=== PATIENT | male | born 1990 | race Caucasian/White ===

== ENCOUNTER 2018-06-04 15:29 | Emergency (ER) | payer OTHER ==
[2018-06-04 15:43] VITALS: BP 130/81; PULSE 73; RESP 18; TEMP 97.8
[2018-06-04] MEDS ORDERED: LIDOCAINE 1% INJ 10MG/ML (20 ML MDV) SQ ONE (15:50)
[2018-06-04] MEDS ORDERED: DIPH,PERTUS(ACELL)TETVAC-LF 0.5 ML VIAL IM ONE (16:00)
[2018-06-04] MEDS ORDERED: TOPICAL SKIN ADHESIVE 1 EACH AMP TOPICAL ONE (16:00)
== END 2018-06-04 16:23 | disposition left against medical advice (07) ==
LOC: EC 15:29
DX: Z03.89 Encounter for observation for other suspected diseases and conditions ruled out (principal)
CPT/HCPCS: 99499

== ENCOUNTER 2018-06-30 22:37 | Emergency (ER) | payer OTHER ==
[2018-06-30] MEDS ORDERED: SODIUM CHLORIDE 0.9% 1,000 ML IV STA (22:40)
[2018-06-30] MEDS ORDERED: ACTIVATED CHARCOAL 50 GM/240 ML BOTTLE PO STA (22:41)
--- NOTE | 2018-06-30 22:57 | ED ---
General Adult HPI - General Chief complaint: Overdose Stated complaint: overdose Time Seen by Provider: 06/30/18 22:39 Source: patient, EMS Mode of arrival: EMS Limitations: no limitations - History of Present Illness Initial comments: Dictation was produced using [employer] dictation software. please excuse any grammatical, word or spelling errors. Chief Complaint: 27-year-old male presents with EtOH intoxication and acute o verdose History of Present Illness: She is a 27-year-old male he is a daily EtOH drinker. He presents today for acute overdose. Patient took 40-50 Librium 25 mg tablets approximately 20 minutes prior to arrival. Patient states he is not suicidal or homicidal. Patient is brought in by EMS where he had stable vital signs upon initial evaluation. Patient is a poor history and at this time. He has no complaints. Patient states he wants help with his EtOH addiction. The ROS documented in this emergency department record has been reviewed and confirmed by me. Those systems with pertinent positive or negative responses have been documented in the HPI. All other systems are other negative and/or noncontributory. PHYSICAL EXAM: General Impression: Alert and oriented x3, not in acute distress, lethargic HEENT: Normocephalic atraumatic, extra-ocular movements intact, pupils equal and reactive to light bilaterally, mucous membranes moist. Cardiovascular: Heart regular rate and rhythm, S1&S2 audible, no murmurs, rubs or gallops Chest: Lungs clear to auscultation bilaterally, no rhonchi, no wheeze, no rales Abdomen: Bowel sounds present, abdomen soft, non-tender, non-distended, no organomegaly Musculoskeletal: Pulses present and equal in all extremities, no peripheral edema Motor: no focal deficits noted Neurological: CN II-XII grossly intact, no focal motor or sensory deficits noted Skin: Intact with no visualized rashes Psych: Normal affect and mood ED course: 27-year-old male presents with acute Librium and EtOH toxicity. Vital signs upon arrival are within acceptable limits. Patient is protecting his airway. Given the patient's time of ingestion was 20 minutes prior to arrival activated charcoal ordered. Patient worked up for acute overdose. Patient's clinical presentation consistent with benzodiazepine toxidrome.Patient appears well at this time. He is a at baseline. Patient however still slightly inebriated patient walked to the bathroom without any complications. Labs were obtained unremarkable. Urinalysis negative. Serum alcohol is 274. Patient has his significant other at bedside who lives with them. She feels comfortable taking him home and bring him back if there is any issues. Understandable and agreeable to the risks of leaving. However at this point he has good social situation and lives nearby and can come back to the emergency Department with any changes. Patient continues to deny suicidal ideation. Patient to be discharge. Patient's clinical presentation more consistent with EtOH intoxication versus Librium toxicity. - Related Data Home Medications Medication Instructions Recorded Confirmed chlordiazePOXIDE HCL 12.5 mg PO BID 06/30/18 06/30/18 chlordiazePOXIDE HCL 25 mg PO PC-SUPPER 06/30/18 06/30/18 Allergies Allergy/AdvReac Type Severity Reaction Status Date / Time No Known Allergies Allergy Verified 06/30/18 22:41 Review of Systems ROS Statement: Those systems with pertinent positive or pertinent negative responses have been documented in the HPI. ROS Other: All systems not noted in ROS Statement are negative. Past Medical History Past Medical History: No Reported History History of Any Multi-Drug Resistant Organisms: None Reported Additional Past Surgical History / Comment(s): skin grafts to 3rd degree zamudio on back, bilateral hand surgery with plates Past Psychological History: No Psychological Hx Reported Smoking Status: Current every day smoker Past Alcohol Use History: Daily Past Drug Use History: Marijuana General Exam Limitations: no limitations Course Vital Signs 06/30/18 06/30/18 22:38 23:07 Temperature 97.5 F L Pulse Rate 90 84 Respiratory 16 16 Rate Blood Pressure 130/82 128/83 O2 Sat by Pulse 98 100 Oximetry Medical Decision Making - Lab Data Result diagrams: 06/30/18 22:39 06/30/18 22:39 Lab Results 06/30/18 06/30/18 06/30/18 Range/Units 22:39 22:39 22:39 WBC 6.7 (3.8-10.6) k/uL RBC 4.70 (4.30-5.90) m/uL Hgb 15.5 (13.0-17.5) gm/dL Hct 47.9 (39.0-53.0) % MCV 101.8 H (80.0-100.0) fL MCH 33.0 (25.0-35.0) pg MCHC 32.4 (31.0-37.0) g/dL RDW 12.6 (11.5-15.5) % Plt Count 223 (150-450) k/uL Neutrophils % 47 % Lymphocytes % 40 % Monocytes % 5 % Eosinophils % 4 % Basophils % 1 % Neutrophils # 3.2 (1.3-7.7) k/uL Lymphocytes # 2.7 (1.0-4.8) k/uL Monocytes # 0.3 (0-1.0) k/uL Eosinophils # 0.3 (0-0.7) k/uL Basophils # 0.1 (0-0.2) k/uL PT 10.1 (9.0-12.0) sec INR 0.9 (<1.2) Sodium 146 H (137-145) mmol/L Potassium 4.5 (3.5-5.1) mmol/L Chloride 109 H (98-107) mmol/L Carbon Dioxide 27 (22-30) mmol/L Anion Gap 10 mmol/L BUN 9 (9-20) mg/dL Creatinine 0.70 (0.66-1.25) mg/dL Est GFR (CKD-EPI)AfAm >90 (>60 ml/min/1.73 sqM) Est GFR (CKD-EPI)NonAf >90 (>60 ml/min/1.73 sqM) Glucose 85 (74-99) mg/dL Calcium 9.8 (8.4-10.2) mg/dL Total Bilirubin 0.4 (0.2-1.3) mg/dL AST 62 H (17-59) U/L ALT 92 H (21-72) U/L Alkaline Phosphatase 49 (38-126) U/L Total Protein 8.0 (6.3-8.2) g/dL Albumin 4.9 (3.5-5.0) g/dL Urine Color Urine Appearance (Clear) Urine pH (5.0-8.0) Ur Specific [place] (1.001-1.035) Urine Protein (Negative) Urine Glucose (UA) (Negative) Urine Ketones (Negative) Urine Blood (Negative) Urine Nitrite (Negative) Urine Bilirubin (Negative) Urine Urobilinogen (<2.0) mg/dL Ur Leukocyte Esterase (Negative) Salicylates <1.0 mg/dL Acetaminophen <10.0 ug/mL Serum Alcohol 274 H* mg/dL 06/30/18 Range/Units 22:39 WBC (3.8-10.6) k/uL RBC (4.30-5.90) m/uL Hgb (13.0-17.5) gm/dL Hct (39.0-53.0) % MCV (80.0-100.0) fL MCH (25.0-35.0) pg MCHC (31.0-37.0) g/dL RDW (11.5-15.5) % Plt Count (150-450) k/uL Neutrophils % % Lymphocytes % % Monocytes % % Eosinophils % % Basophils % % Neutrophils # (1.3-7.7) k/uL Lymphocytes # (1.0-4.8) k/uL Monocytes # (0-1.0) k/uL Eosinophils # (0-0.7) k/uL Basophils # (0-0.2) k/uL PT (9.0-12.0) sec INR (<1.2) Sodium (137-145) mmol/L Potassium (3.5-5.1) mmol/L Chloride (98-107) mmol/L Carbon Dioxide (22-30) mmol/L Anion Gap mmol/L BUN (9-20) mg/dL Creatinine (0.66-1.25) mg/dL Est GFR (CKD-EPI)AfAm (>60 ml/min/1.73 sqM) Est GFR (CKD-EPI)NonAf (>60 ml/min/1.73 sqM) Glucose (74-99) mg/dL Calcium (8.4-10.2) mg/dL Total Bilirubin (0.2-1.3) mg/dL AST (17-59) U/L ALT (21-72) U/L Alkaline Phosphatase (38-126) U/L Total Protein (6.3-8.2) g/dL Albumin (3.5-5.0) g/dL Urine Color Colorless Urine Appearance Clear (Clear) Urine pH 5.5 (5.0-8.0) Ur Specific [place] 1.002 (1.001-1.035) Urine Protein Negative (Negative) Urine Glucose (UA) Negative (Negative) Urine Ketones Negative (Negative) Urine Blood Negative (Negative) Urine Nitrite Negative (Negative) Urine Bilirubin Negative (Negative) Urine Urobilinogen <2.0 (<2.0) mg/dL Ur Leukocyte Esterase Negative (Negative) Salicylates mg/dL Acetaminophen ug/mL Serum Alcohol mg/dL Disposition Clinical Impression: Alcohol abuse Disposition: HOME SELF-CARE Condition: Good Instructions (If sedation given, give patient instructions): Alcohol Dependence (ED) Is patient prescribed a controlled substance at d/c from ED?: No Referrals: None,Stated [REFERRING] - 1-2 days Time of Disposition: 23:53
[2018-06-30 23:03] LABS: Appearance,Urine Clear (Clear); Bilirubin,Urine Negative (Negative); Blood,Urine Negative (Negative); Color,Urine Colorless; Glucose,Urine (UA) Negative (Negative); Ketones,Urine Negative (Negative); Leukocyte Esterase,Urine Negative (Negative); Nitrite,Urine Negative (Negative); PH, Urine 5.5 (5.0-8.0); Protein,Urine Negative (Negative); Specific Gravity,Urine 1.002 (1.001-1.035); Urobilinogen,Urine <2.0 mg/dL (<2.0)
[2018-06-30 23:05] LABS: Basophils # (A) 0.1 k/uL (0-0.2); Basophils % (A) 1 %; Eosinophils # (A) 0.3 k/uL (0-0.7); Eosinophils % (A) 4 %; HCT 47.9 % (39.0-53.0); HGB 15.5 gm/dL (13.0-17.5); Lymphocytes # (A) 2.7 k/uL (1.0-4.8); Lymphocytes % (A) 40 %; MCHC 32.4 g/dL (31.0-37.0); MCV 101.8 fL (80.0-100.0); Mean Platelet Volume 7.6; Monocytes # (A) 0.3 k/uL (0-1.0); Monocytes % (A) 5 %; Neutrophils # (A) 3.2 k/uL (1.3-7.7); Neutrophils % (A) 47 %; Platelet Count 223 k/uL (150-450); RDW 12.6 % (11.5-15.5); WBC 6.7 k/uL (3.8-10.6)
[2018-06-30 23:13] LABS: INR 0.9 (<1.2); Prothrombin Time 10.1 sec (9.0-12.0)
[2018-06-30 23:14] LABS: ALT 92 U/L (21-72); AST 62 U/L (17-59); Acetaminophen <10.0 ug/mL; Albumin 4.9 g/dL (3.5-5.0); Alkaline Phosphatase 49 U/L (38-126); Anion Gap 10 mmol/L; Blood Urea Nitrogen 9 mg/dL (9-20); Calcium 9.8 mg/dL (8.4-10.2); Carbon Dioxide 27 mmol/L (22-30); Chloride 109 mmol/L (98-107); Glucose 85 mg/dL (74-99); Potassium 4.5 mmol/L (3.5-5.1); Salicylate <1.0 mg/dL; Sodium 146 mmol/L (137-145); Total Bilirubin 0.4 mg/dL (0.2-1.3)
[2018-06-30 23:23] LABS: Alcohol 274 mg/dL
[2018-07-01 00:03] VITALS: BP 137/89; PULSE 88; RESP 18; TEMP 98
[2018-07-01 00:21] LABS: Amphetamine Screen,Urine Not Detected (NotDetected); Cocaine Screen,Urine Not Detected (NotDetected); Opiate Screen,Urine Not Detected (NotDetected); Phencyclidine Screen,Urine Not Detected (NotDetected); Urn Cannabinoid Scrn Detected (NotDetected)
[2018-07-01 00:22] LABS: Barbiturate Screen,Urine Not Detected (NotDetected); Benzodiazepines Screen,Urine Detected (NotDetected); Methadone Screen, Urine Not Detected (NotDetected); Oxycodone Screen, Urine Not Detected (NotDetected); Tricyclic Antidepressant,Urine Not Detected (NotDetected)
== END 2018-07-01 | disposition home or self-care (01) ==
LOC: EC 22:37
DX: F10.10 Alcohol abuse, uncomplicated (principal); F17.200 Nicotine dependence, unspecified, uncomplicated
CPT/HCPCS: 36415; 80053; 80306; 80320; 80329; 81003; 82075; 83520; 85025; 85610; 93005; 96360; 99284

== ENCOUNTER 2019-04-17 18:42 | Emergency (ER) | payer OTHER ==
[2019-04-17 18:47] VITALS: BP 129/89; PULSE 92; RESP 20; TEMP 97.6
[2019-04-17] MEDS ORDERED: ONDANSETRON 4 MG/2 ML VIAL IVP STA (19:06)
[2019-04-17] MEDS ORDERED: SODIUM CHLORIDE 0.9% 1,000 ML IV STA (19:06)
[2019-04-17] MEDS ORDERED: PANTOPRAZOLE 40 MG/10 ML VIAL IVP STA (19:07)
[2019-04-17 19:35] LABS: Appearance,Urine Clear (Clear); Basophils # (A) 0.1 k/uL (0-0.2); Basophils % (A) 1 %; Bilirubin,Urine Negative (Negative); Blood,Urine Negative (Negative); Color,Urine Colorless; Eosinophils # (A) 0.2 k/uL (0-0.7); Eosinophils % (A) 3 %; Glucose,Urine (UA) Negative (Negative); HCT 48.8 % (39.0-53.0); HGB 16.1 gm/dL (13.0-17.5); Ketones,Urine Negative (Negative); Leukocyte Esterase,Urine Negative (Negative); Lymphocytes # (A) 2.6 k/uL (1.0-4.8); Lymphocytes % (A) 41 %; MCH 32.3 pg (25.0-35.0); MCHC 32.9 g/dL (31.0-37.0); MCV 98.2 fL (80.0-100.0); Mean Platelet Volume 7.5; Monocytes # (A) 0.4 k/uL (0-1.0); Monocytes % (A) 6 %; Neutrophils # (A) 2.9 k/uL (1.3-7.7); Neutrophils % (A) 46 %; Nitrite,Urine Negative (Negative); Platelet Count 271 k/uL (150-450); Protein,Urine Negative (Negative); RBC 4.97 m/uL (4.30-5.90); RDW 12.8 % (11.5-15.5); Specific Gravity,Urine 1.003 (1.001-1.035); Urobilinogen,Urine <2.0 mg/dL (<2.0); WBC 6.3 k/uL (3.8-10.6)
--- NOTE | 2019-04-17 19:42 | ED ---
General Adult HPI - General Chief complaint: Nausea/Vomiting/Diarrhea Stated complaint: Vomiting blood Time Seen by Provider: 04/17/19 18:50 Source: patient Mode of arrival: ambulatory Limitations: no limitations - History of Present Illness Initial comments: Patient is a 28-year-old male with history of alcohol abuse presenting to emergency Department with a chief complaint of vomiting blood. Patient reports offices on and off for the past 3-4 months. Patient states he drinks about 6 tall glasses of beer daily. States he was prescribed Librium to control his drinking habit by his primary care but due to insurance purposes primary care would not accept him any more. States she has not been taking the medication for the past 2 months. States he also takes omeprazole which she has enough tablets. States that he is essentially looking for medication refill in order to begin his recovery. Patient was offered EPS evaluation but he declined. Denies any abdominal pain, chest pain, shortness of breath, dyspnea, dysphagia or odontophagia.denies hematuria, hematochezia or melena. - Related Data Home Medications Medication Instructions Recorded Confirmed chlordiazePOXIDE HCL 12.5 mg PO BID 06/30/18 04/17/19 chlordiazePOXIDE HCL 25 mg PO PC-SUPPER 06/30/18 04/17/19 Omeprazole 20 mg PO BID 04/17/19 04/17/19 Previous Rx's Medication Instructions Recorded chlordiazePOXIDE HCl [Librium] 25 mg PO QID 3 Days #12 capsule 04/17/19 Allergies Allergy/AdvReac Type Severity Reaction Status Date / Time No Known Allergies Allergy Verified 04/17/19 19:26 Review of Systems ROS Statement: Those systems with pertinent positive or pertinent negative responses have been documented in the HPI. ROS Other: All systems not noted in ROS Statement are negative. Past Medical History Past Medical History: No Reported History History of Any Multi-Drug Resistant Organisms: None Reported Additional Past Surgical History / Comment(s): skin grafts to 3rd degree zamudio on back, bilateral hand surgery with plates Past Psychological History: No Psychological Hx Reported Smoking Status: Current every day smoker Past Alcohol Use History: Abuse, Daily, Heavy Past Drug Use History: Marijuana General Exam Limitations: no limitations General appearance: alert, in no apparent distress Head exam: Present: atraumatic, normocephalic, normal inspection Eye exam: Present: normal appearance, PERRL, EOMI Pupils: Present: normal accommodation ENT exam: Present: normal exam, normal oropharynx, mucous membranes moist, TM's normal bilaterally, normal external ear exam Neck exam: Present: normal inspection, full ROM Respiratory exam: Present: normal lung sounds bilaterally. Absent: respiratory distress, wheezes, rales, rhonchi, stridor Cardiovascular Exam: Present: regular rate, normal rhythm, normal heart sounds GI/Abdominal exam: Present: soft, normal bowel sounds. Absent: distended, tenderness, guarding Extremities exam: Present: normal inspection, full ROM Back exam: Present: normal inspection, full ROM Neurological exam: Present: alert, oriented X3 Skin exam: Present: warm, dry, intact, normal color Course Vital Signs 04/17/19 18:44 Temperature 97.6 F Pulse Rate 92 Respiratory 20 Rate Blood Pressure 129/89 O2 Sat by Pulse 98 Oximetry Medical Decision Making - Medical Decision Making Patient is 28-year-old male with history of alcohol abuse presenting to emergency Department with a chief complaint of vomiting blood. Physical examination is unremarkable. Patient given fluids antiemetics and Protonix. Patient does have hemoptysis on and off for the past 4 months due to his alcohol abuse. Patient essentially looking for a refill of Librium in order to curb his alcohol abuse. He currently has an appointment scheduled with a new primary care within a week. He is going to his last primary care due to insurance purposes. CBC is unremarkable. No signs of anemia. CMP does show elevated liver enzymes which is expected due to the chronic alcohol abuse. Patient will be given 12 tablets of Librium. Should last him enough until he sees the primary care. Reevaluation patient reports improvement of symptoms. Return parameters were thoroughly discussed with patient was understanding and agreeable. Case discussed with physician. - Lab Data Result diagrams: 04/17/19 19:25 04/17/19 19:25 Lab Results 04/17/19 04/17/19 04/17/19 Range/Units 19:25 19:25 19:25 WBC 6.3 (3.8-10.6) k/uL RBC 4.97 (4.30-5.90) m/uL Hgb 16.1 (13.0-17.5) gm/dL Hct 48.8 (39.0-53.0) % MCV 98.2 (80.0-100.0) fL MCH 32.3 (25.0-35.0) pg MCHC 32.9 (31.0-37.0) g/dL RDW 12.8 (11.5-15.5) % Plt Count 271 (150-450) k/uL Neutrophils % 46 % Lymphocytes % 41 % Monocytes % 6 % Eosinophils % 3 % Basophils % 1 % Neutrophils # 2.9 (1.3-7.7) k/uL Lymphocytes # 2.6 (1.0-4.8) k/uL Monocytes # 0.4 (0-1.0) k/uL Eosinophils # 0.2 (0-0.7) k/uL Basophils # 0.1 (0-0.2) k/uL Sodium 141 (137-145) mmol/L Potassium 4.4 (3.5-5.1) mmol/L Chloride 103 (98-107) mmol/L Carbon Dioxide 27 (22-30) mmol/L Anion Gap 11 mmol/L BUN 8 L (9-20) mg/dL Creatinine 0.90 (0.66-1.25) mg/dL Est GFR (CKD-EPI)AfAm >90 (>60 ml/min/1.73 sqM) Est GFR (CKD-EPI)NonAf >90 (>60 ml/min/1.73 sqM) Glucose 113 H (74-99) mg/dL Calcium 9.6 (8.4-10.2) mg/dL Total Bilirubin 0.4 (0.2-1.3) mg/dL AST 63 H (17-59) U/L ALT 79 H (4-49) U/L Alkaline Phosphatase 83 (38-126) U/L Total Protein 8.0 (6.3-8.2) g/dL Albumin 4.9 (3.5-5.0) g/dL Amylase 89 (30-110) U/L Lipase 188 (23-300) U/L Urine Color Colorless Urine Appearance Clear (Clear) Urine pH 6.0 (5.0-8.0) Ur Specific [place] 1.003 (1.001-1.035) Urine Protein Negative (Negative) Urine Glucose (UA) Negative (Negative) Urine Ketones Negative (Negative) Urine Blood Negative (Negative) Urine Nitrite Negative (Negative) Urine Bilirubin Negative (Negative) Urine Urobilinogen <2.0 (<2.0) mg/dL Ur Leukocyte Esterase Negative (Negative) Disposition Clinical Impression: Alcohol abuse, Medication refill Disposition: HOME SELF-CARE Condition: Stable Instructions (If sedation given, give patient instructions): Acute Nausea and Vomiting (ED) Additional Instructions: Take prescribed medication as directed. Continue taking the omeprazole as prescribed. Return to emergency department if symptoms worsen. Prescriptions: chlordiazePOXIDE HCl [Librium] 25 mg PO QID 3 Days #12 capsule Is patient prescribed a controlled substance at d/c from ED?: Yes If prescribed controlled substance>3 days was MAPS reviewed?: Prescribed <3 Days Referrals: Luigi Alves MD [Primary Care Provider] - 1-2 days Time of Disposition: 21:01
[2019-04-17 19:44] LABS: ALT 79 U/L (4-49); AST 63 U/L (17-59); African American GFR (CKD) >90 (>60 ml/min/1.73 sqM); Albumin 4.9 g/dL (3.5-5.0); Alkaline Phosphatase 83 U/L (38-126); Amylase 89 U/L (30-110); Anion Gap 11 mmol/L; Blood Urea Nitrogen 8 mg/dL (9-20); Calcium 9.6 mg/dL (8.4-10.2); Carbon Dioxide 27 mmol/L (22-30); Chloride 103 mmol/L (98-107); Glucose 113 mg/dL (74-99); Non-African American GFR(CKD) >90 (>60 ml/min/1.73 sqM); Potassium 4.4 mmol/L (3.5-5.1); Sodium 141 mmol/L (137-145); Total Bilirubin 0.4 mg/dL (0.2-1.3)
--- NOTE | 2019-04-17 21:02 | XR ---
EXAMINATION TYPE: XR chest 2V DATE OF EXAM: 04/17/2019 COMPARISON: NONE HISTORY: Coughing up blood TECHNIQUE: FINDINGS: Heart and mediastinum are normal. Lungs are clear. Diaphragm is normal. Bony thorax appears normal. IMPRESSION: Normal chest.
[2019-04-18 15:24] LABS: Hepatitis A Antibody IgM NEGATIVE
[2019-04-18 23:19] LABS: Hepatitis B Core IgM Non-Reactive (Non-Reactive); Hepatitis B Surface Antigen Non-Reactive (Non-Reactive); Hepatitis C IgG Antibody Reactive (Non-Reactive)
== END 2019-04-17 21:20 | disposition home or self-care (01) ==
LOC: EC 18:42
DX: F10.10 Alcohol abuse, uncomplicated (principal); Z76.0 Encounter for issue of repeat prescription; K92.0 Hematemesis; R04.2 Hemoptysis; R74.8 Abnormal levels of other serum enzymes; F17.200 Nicotine dependence, unspecified, uncomplicated
CPT/HCPCS: 36415; 80053; 80074; 82150; 83690; 85025; 81003; 71046; 99285; 96374; 96375; 96361; J2405; C9113

== ENCOUNTER 2021-10-31 20:00 | Inpatient (IN) | payer MEDICAID, OTHER ==
[2021-11-01] MEDS ORDERED: ACETAMINOPHEN TAB 325 MG TAB PO PRN (00:22)
[2021-11-01] MEDS ORDERED: MAG HYDROX/AL HYDROX/SIMETH 30 ML CUP PO PRN (00:22)
[2021-11-01] MEDS ORDERED: MAGNESIUM HYDROXIDE 2,400 MG/10 ML CUP PO PRN (00:22)
[2021-11-01] MEDS ORDERED: OLANZapine 10 MG VIAL IM PRN (00:24)
[2021-11-01] MEDS ORDERED: hydrOXYzine pamoate 25 MG CAP PO PRN (00:24)
[2021-11-01] MEDS ORDERED: OLANZapine 5 MG TAB PO PRN (00:24)
[2021-11-01] MEDS ORDERED: hydrOXYzine HCL 50 MG/ML 1 ML VIAL IM PRN (00:24)
[2021-11-01] MEDS: NICOTINE 14MG/24HR PATCH TRANSDERM SCH (08:22)
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
[2021-11-01] MEDS: DULoxetine HCL 30 MG CAPSULE.DR PO SCH (14:55)
[2021-11-01] MEDS ORDERED: traZODone HCL 50 MG TAB PO SCH (21:00)
--- NOTE | 2021-11-02 06:30 | P.MDCNMH ---
History of Present Illness H&P Date: 11/02/21 Chief Complaint: Suicidal thoughts 31-year-old male with no significant past medical history Patient was brought into the hospital for psych evaluation due to aggressive behavior and suicidal ideation. Patient claims that he was drinking with his baldemar when he got offered some Xanax that he took after that he started having aggressive behavior and making threats and some suicidal thoughts he regrets doing that and he claims that he never felt suicidal or depressed in the past. Otherwise he denies any medical concerns denies any fevers chills nausea vomiting abdominal pain chest pain trouble breathing Review of Systems Pertinent positives as noted in HPI. All other systems were reviewed and are negative Past Medical History Past Medical History: No Reported History History of Any Multi-Drug Resistant Organisms: None Reported Additional Past Surgical History / Comment(s): skin grafts to 3rd degree zamudio on back, bilateral hand surgery with plates Smoking Status: Current every day smoker - Past Family History Family Family Medical History: Cancer Medications and Allergies Home Medications Medication Instructions Recorded Confirmed Type chlordiazePOXIDE HCl 12.5 mg PO BID 06/30/18 04/17/19 History [chlordiazePOXIDE HCL] chlordiazePOXIDE HCl 25 mg PO PC-SUPPER 06/30/18 04/17/19 History [chlordiazePOXIDE HCL] Omeprazole 20 mg PO BID 04/17/19 04/17/19 History chlordiazePOXIDE HCl [Librium] 25 mg PO QID 3 Days #12 capsule 04/17/19 Rx Allergies Allergy/AdvReac Type Severity Reaction Status Date / Time No Known Allergies Allergy Verified 04/17/19 19:26 Physical Exam Constitutional: No acute distress, conversant, pleasant Eyes: Anicteric sclerae, moist conjunctiva, Pupils equal round reactive to light ENMT: NC/AT Oropharynx clear, no erythema, or exudates Neck: Supple, FROM, no masses, or JVD No carotid bruits No thyromegaly Lungs: Clear to auscultation Clear to percussion Normal respiratory effort, no accessory muscle use Cardiovascular: Heart regular in rate and rhythm, No murmurs, gallops, or rubs No peripheral edema Abdominal: Soft Nontender, no guarding, rebound or rigidity Abdomen moving with respiration Normoactive bowel sounds No hepatomegaly, No splenomegaly No palpable mass No abdominal wall hernia noted Skin: Normal temperature, tone, texture, turgor No induration No subcutaneous nodules No rash, lesions No ulcers Extremities: No digital cyanosis No clubbing Pedal pulses intact and symmetrical Radial pulses intact and symmetrical No calf tenderness Psychiatric: Alert and oriented to person, place and time Appropriate affect fair judgement Neuro Muscles Strength 5/5 in all 4 extremities Sensation to light touch grossly present throughout Cranial nerves II-XII grossly intact No focal sensory deficits Lymphatics: no palpable cervical or supraclavicular , or inguinal lymph nodes Cranial Nerve Examination - Cranial Nerves Cranial Nerve II- Optic: Intact Cranial Nerve III- Oculomotor: Intact Cranial Nerve IV- Trochlear: Intact Cranial Nerve V- Trigeminal: Intact Cranial Nerve - Abducens: Intact Cranial Nerve VII- Facial: Intact Cranial Nerve VIII- Auditory: Intact Cranial Nerve IX- Glossopharyngeal: Intact Cranial Nerve X- Vagus: Intact Cranial Nerve XI- Accessory: Intact Cranial Nerve XII- Hypoglossal: Intact Assessment and Plan Assessment: Aggressive behavior and suicidal ideation Management per psych Tobacco smoking Patient counseled to quit smoking Follow-up labs Thank you for allowing us to participate in the care of this patient. We will follow peripherally. Do not hesitate to contact us with questions. Someone can be reached from the [facility] hospitalist group at all hours of the day at [phone].
[2021-11-02] MEDS: NICOTINE 14MG/24HR PATCH TRANSDERM SCH (08:55)
[2021-11-02] MEDS: DULoxetine HCL 30 MG CAPSULE.DR PO SCH (08:55)
--- NOTE | 2021-11-02 10:38 | P.PN ---
Progress Note - Text Progress Note Date: 11/02/21 Interval History: Patient was seen taking part in group this morning and was directable and agre eable to speak with freelance copywriter in the office. Patient claims that he only slept around 1-2 hours last night. He states that the trazodone did not help him much. He was requesting to go back on Seroquel as it helped him sleep in the previous hospital. He states that he does have anxiety and racing thoughts at nighttime. He claims that he did feel a bit down yesterday as he saw other people get discharged and knew he wasn't getting discharge. He states that he has been speaking with his over the phone and misses his family. He claims that his mood is gradually improving and denying any current anxiety at this time. States that he is going to groups. At this time patient denies any suicidal or homical ideations, intent or plan. Patient denies any auditory, visual hallucinations and denies any paranoia or delusions. Patient denies any side effects from the medications and has been compliant with meds. Mental Status Exam: General Appearance: Patient appears to be tall, clean cut, stated age is alert, directable, and attempts to cooperate. Patient appears to have hygiene and grooming. Behavior: Patient is seated without any agitated behavior. superficial at times. Speech: Patient's speech is fluent and nonpressured. Mood/Affect: Patient reports their mood is "a bit better", affect is incongruent Suicidality/Homicidality: Patient denies having any homicidal ideation intent or plan. Denies any suicidal ideations intent or plan Perceptions: Patient denies any visual hallucinations and denies any auditory hallucinations Though content/process: There is no evidence of any delusional thought content and thought process is linear and goal-directed. Rambles at times, improving mildly Memory and concentration: AOX3, grossly intact for the purposes of this session Judgment and insight: Improving mildly IMPRESSIONS: Depressive disorder unspecified, rule out bipolar depression vs major depressive disorder Personality disorder unspecified, likely borderline personality disorder Alcohol use disorder Benzodiazepine abuse. Cannabis use disorder mild Nicotine dependence Plan: -Patient continues to meet criteria for inpatient psychiatric admission for symptom stabilization and safety. Patient has signed adult voluntary form and medication consent and was placed in patient's chart. -Medications: Cymbalta 30 mg daily for mood/anxiety, d/c trazodone and replaced with seroquel 50 mg qhs for insomnia/mood stabilization. -When necessary Ativan and Haldol for agitation/aggression. -NRT - nicotine patch -SW on board for discharge planning. Encouraged the patient to participate in milieu. Patient is refusing rehab at this time. Possible discharge tomorrow versus Saturday depending if patient is improving psychiatrically.
[2021-11-02 17:07] LABS: Chol/HDL Ratio 4.94 Ratio; LDL Cholesterol,Calculated 97.6 mg/dL (0.0-131.0)
[2021-11-02] MEDS ORDERED: QUEtiapine 100 MG TAB PO SCH (21:00)
[2021-11-02] MEDS ORDERED: QUEtiapine 50 MG TAB PO SCH ×2 (21:00)
[2021-11-03 06:51] VITALS: BP 126/74; PULSE 66; RESP 18; TEMP 98.5
[2021-11-03] MEDS: DULoxetine HCL 30 MG CAPSULE.DR PO SCH (08:18)
[2021-11-03] MEDS: NICOTINE 14MG/24HR PATCH TRANSDERM SCH (08:18)
--- NOTE | 2021-11-03 10:01 | P.DS ---
Providers Date of admission: 10/31/21 23:55 Expected date of discharge: 11/03/21 Attending physician: Adriel Rodriguez MD Consults: 11/01/21 00:22 Consult Physician Routine Consulting Provider: Db Haddad Consult Reason/Comments: H&P and medical Do you want consulting provider notified?: Yes Primary care physician: Stated None - Discharge Diagnosis(es) (1) Depressive disorder Current Visit: Yes Status: Acute Priority: High (2) Borderline personality disorder Current Visit: Yes Status: Acute Priority: Medium (3) Alcohol use disorder Current Visit: Yes Status: Acute Priority: Medium (4) Benzodiazepine abuse Current Visit: Yes Status: Acute Priority: Medium (5) Cannabis use disorder, mild, abuse Current Visit: Yes Status: Acute Priority: Low (6) Nicotine dependence Current Visit: Yes Status: Acute Priority: Low Hospital Course: Admission HPI: Admission note was completed by writer technical publications "Patient is a 31-year-old male, currently to his , living with his 2 kids aswell, works doing [employer] for [employer]. Patient presented to the hospital yesterday as a transfer from [facility]. Patient is currently on a petition and cert, petition states that patient overdosed on xanax, 30 tabs and has poor insight and judgment and apparently has been telling his that he was having suicidal thought. He appears to be friendly, and polite. He was minimizing what had occured last saturday where he states that he was drinking and "a baldemar offered me a couple of xanaxs" while he was partying. He states that he has two kids and that he is working and a "great life". He states that he "blacked out". He is minimizing his symptoms. He also denied what was written on the petition. HE was minimizng his depression and anxiety. He denies any stressors in his life. du foster that he is sleeping fairly, appetite is good. Patient denies any suicidal or homicidal ideations intent or plan. At this time patient denies any auditory or visual hallucinations. Patient denies any flight of ideas racing thoughts and increased in goal directed behavior. Patient admits to using marijuana daily, cigarettes daily, etoh drinking approx 2 tall boys beer/day. Produce Team Lead called Shahla, and she spoke that patient may have trauma and wants him to get help. He apparently has made suicidal statements to his as a reaction "to get me to not leave". She states that he didnt explicitly say that he wants to harm himself now.She does claim that he does have problems with alcohol and makes several "extreme statements" when he is drinking." Hospital course: Upon admission to the unit patient was directable and agreeable to commence treatment and signed adult voluntary form . Patient got along well with other patients on the unit and followed unit protocol. Patient was compliant with the medications and denied any side effects throughout hospital course. Patient was started on Cymbalta 30 mg daily for mood/anxiety, Seroquel 50 mg daily at bedtime for insomnia/mood stabilization. Patient spoke of his stressors and engaged in therapy both group and individual. Patient was also seen by medical team for history and physical exam. Throughout the course of the ho spitalization patient gradually improved with regards to mood, anxiety, sleep and became more future oriented with improved insight and judgment. On the day of discharge patient denied any suicidal or homicidal ideations intent or plan denied any auditory or visual hallucinations. Patient endorsed wanting to live for his health, kids and family. The patient denied any access to guns or weapons. Patient denied any paranoia and did not endorse any delusions. Patient does have a significant history of substance abuse and was counseled on abstaining from all substances including alcohol and marijuana. Patient was offered however declined inpatient substance-abuse rehab. Patient elected to do outpatient substance use treatment program through [facility] was more interested in continuing on with AA meetings locally. Patient was also counseled on the medications and need for regular compliance and was encouraged to follow-up with their outpatient appointment for mental health and also for primary care. Prior to discharge a family meeting will be arranged by child protective services social worker to answer any questions and ensure safety upon discharge. Mental status exam: General Appearance: Patient appears to be tall, tattoos, stated age is alert, pleasant, and cooperative. Patient is in no acute distress and has improved hygiene and grooming Behavior: Patient is calmly seated without any agitated behavior. Speech: Patient's speech is fluent and nonpressured. Mood/Affect: Patient reports their mood is "good", affect is congruent and euthymic. Suicidality/Homicidality: Patient denies having any suicidal or homicidal ideation intent or plan. Perceptions: Patient denies any auditory or visual hallucinations. Though content/process: There is no evidence of any delusional thought content and thought process is linear and goal-directed. more future oriented Memory and concentration: AOX3, grossly intact for the purposes of this session. Can spell "WORLD" backwards correctly. Judgment and insight: chronically poor, however has improved with guarded prognosis Impression: Depressive disorder unspecified, rule out bipolar depression versus major depressive disorder Borderline personality disorder Cannabis use disorder mild Alcohol use disorder Benzodiazepine abuse Nicotine dependence Plan: -Continue with discharge today as patient has improved and stabilized psychiatrically and is not currently an imminent threat to himself and/or others. Patient will remain at chronically elevated risk for harm to self and/or others due to his impulsivity and polysubstance abuse. -Continue medications: Cymbalta 30 mg daily for mood/anxiety, Seroquel 50 mg daily at bedtime for insomnia/mood stabilization. -Patient was counseled on the need for medication compliance and appropriate follow-up at mental health and also primary care for medical issues. Patient verbalized understanding and agreed. -Social work to arrange for and conduct family meeting to ensure safety upon discharge and answer any questions/concerns. Social work also to arrange for patients follow up appointments with [facility] for psychiatric care along with follow up with primary care provider. -Patient counseled on abstaining from recreational drugs and marijuana and alcohol. Was informed/educated on the adverse effects on their physical and mental health. Patient verbally agreed and understood. Patient was offered substance abuse treatment however declined at this time. Patient was interested in doing AA meetings locally. -Patient was instructed to return to the hospital or seek immediate medical care if their psychiatric or medical symptoms do worsen or reoccur. Allergies Allergy/AdvReac Type Severity Reaction Status Date / Time No Known Allergies Allergy Verified 04/17/19 19:[address] Glu mg/dL 133 11/02/21 07:54 Hemoglobin A1c 6.3 % (0.0-6.0) H 11/02/21 07:54 Triglycerides 138.00 mg/dL (0.00-149.00) 11/02/21 07:54 Cholesterol 157.00 mg/dL (0.00-200.00) 11/02/21 07:54 LDL Cholesterol, Calc 97.6 mg/dL (0.0-131.0) 11/02/21 07:54 VLDL Cholesterol, Calc 27.60 mg/dL (5.00-40.00) 11/02/21 07:54 HDL Cholesterol 31.80 mg/dL (40.00-60.00) L 11/02/21 07:54 Cholesterol/HDL Ratio 4.94 Ratio 11/02/21 07:54 TSH 1.370 mIU/L (0.465-4.680) 11/02/21 07:54 Vital Signs Temp 98.5 F 11/03/21 06:48 Pulse 66 11/03/21 06:48 Resp 18 11/03/21 06:48 BP 126/74 11/03/21 06:48 Pulse Ox 98 11/03/21 06:48 FiO2 Patient Condition at Discharge: Stable Plan - Discharge Summary Discharge Rx Participant: No New Discharge Prescriptions: New Nicotine 14Mg/24Hr Patch [Habitrol] 1 patch TRANSDERM DAILY 14 Days patch QUEtiapine [SEROquel] 50 mg PO HS 30 Days tab DULoxetine HCL [Cymbalta] 30 mg PO DAILY 30 Days cap Continue Omeprazole 20 mg PO BID Discontinued chlordiazePOXIDE HCl [chlordiazePOXIDE HCL] 25 mg PO PC-SUPPER chlordiazePOXIDE HCl [chlordiazePOXIDE HCL] 12.5 mg PO BID chlordiazePOXIDE HCl [Librium] 25 mg PO QID 3 Days #12 capsule Discharge Medication List Omeprazole 20 mg PO BID 04/17/19 [History] DULoxetine HCL [Cymbalta] 30 mg PO DAILY 30 Days cap 11/03/21 [Rx] Nicotine 14Mg/24Hr Patch [Habitrol] 1 patch TRANSDERM DAILY 14 Days patch 11/03/21 [Rx] QUEtiapine [SEROquel] 50 mg PO HS 30 Days tab 11/03/21 [Rx] Follow up Appointment(s)/Referral(s): [facility] [Other] - 1 Week Patient Instructions/Handouts: How to Stop Smoking (ED), Depression (DC) Activity/Diet/Wound Care/Special Instructions: Avoid the use of street drugs and alcohol. Take all prescriptions as prescribed. When you are in need of refills on your medications, please contact your medical provider and/or outpatient psychiatrist to have this done. Please go to scheduled outpatient appointment for aftercare treatment. If symptoms return or become worse, call the crisis line at and/or go to the nearest emergency room for evaluation. Discharge Disposition: HOME SELF-CARE
== END 2021-11-03 17:04 | disposition home or self-care (01) | DRG 881 ==
LOC: 3MHU 23:55
PROVIDERS: ADMIT Psychiatry & Neurology Psychiatry; ATTEND Psychiatry & Neurology Psychiatry
DX: F32.A Depression, unspecified (principal); F60.3 Borderline personality disorder; F41.9 Anxiety disorder, unspecified; F13.10 Sedative, hypnotic or anxiolytic abuse, uncomplicated; Z71.51 Drug abuse counseling and surveillance of drug abuser; Z71.6 Tobacco abuse counseling; F10.10 Alcohol abuse, uncomplicated; F12.10 Cannabis abuse, uncomplicated; F17.210 Nicotine dependence, cigarettes, uncomplicated; G47.00 Insomnia, unspecified; Z79.899 Other long term (current) drug therapy
CPT/HCPCS: 80061; 83036; 84443